=== PATIENT | male | born 1995 | race Caucasian/White ===

== ENCOUNTER → 2024-06-23 15:35 | Outpatient (CLI) | payer BC, SELFPAY ==
[2024-06-23 17:17] LABS: Add Manual Diff / Slide Review NO; Basophils Absolute Auto 0 /uL (0-100); Basophils Percent Auto 0.3 % (0-2); Eosinophils Absolute Auto 200 /uL (0-450); Eosinophils Percent Auto 2.8 % (2-4); Hematocrit 42.2 % (41-53); Lymphocytes Absolute Auto 2000 /uL (1100-4500); Lymphocytes Percent Auto 24.7 % (25-40); Mean Corpuscular HGB Conc 35.5 % (30-36); Mean Corpuscular Hemoglobin 29.7 PG (26-34); Mean Corpuscular Volume 83.5 fL (80-100); Monocytes Absolute Auto 600 /uL (0-900); Monocytes Percent Auto 7.4 % (3-14); Neutrophils Absolute Auto 5200 /uL (1500-7000); Neutrophils Percent Auto 64.8 % (50-75); Platelet Count 253 X10^3/uL (150-400); Red Blood Cell Count 5.05 X10^6/uL (4.5-5.9); Red Cell Distribution Width 13.3 % (11.6-14.8)
[2024-06-23 17:24] LABS: HEMOLYSIS < 15 (0-50); Iron 67 ug/dL (49-181)
[2024-06-23 17:29] LABS: Alanine Aminotransferase 48 IU/L (<50); Albumin 4.8 g/dL (3.5-5.0); Albumin Globulin Ratio 1.7 (1.0-2.8); Alkaline Phosphatase 77 U/L (38-126); Aspartate Aminotransferase 62 IU/L (17-59); BUN Creatinine Ratio 22.7 (6-22); Bilirubin Total 0.4 mg/dL (0.2-1.3); Blood Urea Nitrogen 22 mg/dL (9-20); Calcium 9.2 mg/dL (8.4-10.2); Carbon Dioxide 25 mmol/L (22-32); Chloride 104 mmol/L (98-107); Cholesterol 191 mg/dL (140-199); Estimated Glomerular Filt Rate > 60 mL/min (>60); Globulin 2.9 g/dL (1.7-4.1); Glucose 95 mg/dL (70-100); HDL Cholesterol 44 mg/dL (40-60); HEMOLYSIS < 15 (0-50); LDL Cholesterol Calculated 124 mg/dL (<100); Potassium 4.2 mmol/L (3.4-5.1); Sodium 140 mmol/L (137-145); Total Protein 7.7 g/dL (6.3-8.2); Triglycerides 116 mg/dL (35-150)
[2024-06-23 17:35] LABS: Percent Iron Saturation 23 % (20-50); Total Iron Binding Capacity 288 ug/dL (261-462); Transferrin 274 mg/dL (206-381)
== END ==
LOC: LAB 15:36
PROVIDERS: PCP Student in an Organized Health Care Education/Training Program; Referring Provider Student in an Organized Health Care Education/Training Program; Visit Provider Student in an Organized Health Care Education/Training Program
DX: I10 Essential (primary) hypertension (principal)
CPT/HCPCS: 36415; 80053; 80061; 83540; 83550; 85025